=== PATIENT | female | born 1970 | race Caucasian/White ===

== ENCOUNTER 2019-10-22 17:48 | Emergency (ER) | payer MEDICAID ==
[~2019-10-22] VITALS: Ht 157.5 cm; Wt 65.8 kg
[2019-10-22 18:02] VITALS: BP_SYST 177
[2019-10-22 18:35] LABS: BASOPHILS % (AUTO) 0.4 % (0.0-2.0); EOSINOPHILS % (AUTO) 0.7 % (0.0-4.0); HEMATOCRIT 39.9 % (36-48); HEMOGLOBIN 13.3 g/dL (12.0-16.0); LYMPHOCYTES # (AUTO) 1.1 K/uL (1.0-5.5); LYMPHOCYTES % (AUTO) 20.8 % (20.5-51.5); MEAN CORPUSCULAR HEMOGLOBIN 31 pg (27-31); MEAN CORPUSCULAR HGB CONC 33 % (32-36); MEAN CORPUSCULAR VOLUME 92 fL (79.0-98.0); MONOCYTES # (AUTO) 0.3 K/uL (0.0-1.0); MONOCYTES % (AUTO) 4.9 % (1.7-9.3); NEUTROPHILS % (AUTO) 73.2 % (40.0-70.0); PLATELET COUNT (AUTO) 190 K/uL (130-430); RED BLOOD CELL COUNT(AUTO) 4.33 MIL/uL (4.2-6.2); RED CELL DISTRIBUTION WIDTH 12.9 % (9.0-15.0); WHITE BLOOD COUNT (AUTO) 5.4 K/uL (4.8-10.8)
[2019-10-22 18:43] LABS: CALCIUM 8.7 mg/dL (8.4-11.0); CREATININE 0.82 mg/dL (0.55-1.30); POTASSIUM 3.7 mmol/L (3.5-5.1)
[2019-10-22] MEDS ORDERED: cloNIDine HCL 0.1 MG TABLET PO ONE (18:45)
[2019-10-22 18:49] LABS: ALBUMIN 3.8 g/dL (3.4-4.8); TOTAL BILIRUBIN 0.2 mg/dL (0.0-1.0)
[2019-10-22 18:56] LABS: PROTHROMBIN TIME 9.6 SECS (9.5-12.5)
[2019-10-22 20:15] VITALS: BP_SYST 150
== END 2019-10-22 20:15 | disposition home or self-care (01) ==
LOC: SED 17:48
DX: I16.0 Hypertensive urgency (principal)
CPT/HCPCS: 36415; 71045; 80053; 82550-TC; 84484; 84703; 85025; 85610-TC; 85730-TC; 93005; 99285

== ENCOUNTER 2020-11-06 18:07 | Emergency (ER) | payer MEDICAID ==
[~2020-11-06] VITALS: Ht 144.8 cm; Wt 63.5 kg
--- NOTE | 2020-11-06 18:07 | NUR ---
EKG DONE ON ARRIVAL WITH RESULTS TO
--- NOTE | 2020-11-06 18:07 | NUR ---
PT TO BED 2 FOR EVALUATION. REPORT RECEIVED FROM LARISSA VARGAS.
--- NOTE | 2020-11-06 18:08 | NUR ---
ER at bedside examining patient.
--- NOTE | 2020-11-06 18:10 | NUR ---
Pt came into ER with complaint of nonradiating left sided chest pain 4/10 for approximatley seven days. Pt AAOX4 speaking in full sentences. Resting in gurney no distress noted. Blood pressure elevated 184/ 98.
[2020-11-06 18:11] VITALS: BP_SYST 184
--- NOTE | 2020-11-06 18:23 | NUR ---
# 20 gauge angiocath placed to LAC. Use of asceptic technique. Opsite placed over site. Blood return noted. Blood for lab drawn from site. Flushed with 10 cc of normal saline. No evidence of infiltration noted. Patient tolerated well.
--- NOTE | 2020-11-06 18:28 | NUR ---
X-ray at bedside.
[2020-11-06 18:40] LABS: BASOPHILS % (AUTO) 0.5 % (0.0-2.0); EOSINOPHILS # (AUTO) 0.1 K/uL (0.0-0.4); EOSINOPHILS % (AUTO) 1.3 % (0.0-4.0); HEMOGLOBIN 14.1 g/dL (12.0-16.0); LYMPHOCYTES # (AUTO) 1.4 K/uL (1.0-5.5); LYMPHOCYTES % (AUTO) 25.4 % (20.5-51.5); MEAN CORPUSCULAR HEMOGLOBIN 33 pg (27-31); MEAN CORPUSCULAR HGB CONC 34 % (32-36); MEAN CORPUSCULAR VOLUME 95 fL (79.0-98.0); MONOCYTES # (AUTO) 0.3 K/uL (0.0-1.0); MONOCYTES % (AUTO) 5.4 % (1.7-9.3); NEUTROPHILS # (AUTO) 3.8 K/uL (1.8-7.7); NEUTROPHILS % (AUTO) 67.4 % (40.0-70.0); PLATELET COUNT (AUTO) 201 K/uL (130-430); RED BLOOD CELL COUNT(AUTO) 4.33 MIL/uL (4.2-6.2); RED CELL DISTRIBUTION WIDTH 13.4 % (9.0-15.0); WHITE BLOOD COUNT (AUTO) 5.6 K/uL (4.8-10.8)
[2020-11-06 19:22] LABS: CALCIUM 8.8 mg/dL (8.4-11.0); CREATININE 0.95 mg/dL (0.55-1.30); POTASSIUM 3.5 mmol/L (3.5-5.1)
[2020-11-06 19:28] LABS: ALBUMIN 3.7 g/dL (3.4-4.8); TOTAL BILIRUBIN 0.5 mg/dL (0.0-1.0)
--- NOTE | 2020-11-06 19:30 | NUR ---
PT RESTING QUIETLY AWAITING DISPOSITION.
[2020-11-06 22:00] VITALS: BP_SYST 176
--- NOTE | 2020-11-06 22:01 | NUR ---
Patient given written and verbal discharge instructions and verbalizes understanding. ER MD discussed with patient the results and treatment provided. Patient in stable condition. ID arm band removed. IV catheter removed intact and dressing applied, no active bleeding. Patient educated on pain management and to follow up with PMD. Pain Scale 0/10 . Opportunity for questions provided and answered. Medication side effect fact sheet provided.
== END 2020-11-06 22:00 | disposition home or self-care (01) ==
LOC: SED 18:07
DX: K20.90 Esophagitis, unspecified without bleeding (principal)
CPT/HCPCS: 36415; 71045; 80053; 84484; 84703; 85025; 93005; 99285